=== PATIENT | male | born 1980 | race Caucasian/White ===

== ENCOUNTER 2021-06-25 23:38 | Emergency (ER) | payer MEDICAID ==
[~2021-06-25] VITALS: Ht 175.3 cm; Wt 77.1 kg
[2021-06-26 00:11] VITALS: BP 140/97
== END 2021-06-26 01:29 ==
LOC: ER 23:38
DX: F11.20 Opioid dependence, uncomplicated (principal); F17.210 Nicotine dependence, cigarettes, uncomplicated

== ENCOUNTER 2022-06-20 11:28 | Emergency (ER) | payer SELFPAY ==
[~2022-06-20] VITALS: Ht 172.7 cm; Wt 91.0 kg
[2022-06-20] MEDS ORDERED: SODIUM CHLORIDE 0.9% 1,000 ML IV ONE (11:30)
[2022-06-20 12:30] LABS: Basophils # (auto) 0 10 ^3/uL (0-0.2); Basophils % (auto) 0.1 % (0.0-2.0); Eosinophils # (auto) 0 10 ^3/uL (0-0.8); Eosinophils % (auto) 0.3 % (0.0-7.0); Hematocrit 40.9 % (41.0-53.0); Hemoglobin 13.5 g/dL (13.5-17.5); Lymphocytes % (auto) 8.6 % (10.0-50.0); Mean Corpuscular Hemoglobin 27.4 pg (28.0-32.0); Mean Corpuscular Hgb Conc. 32.9 g/dL (32.0-36.0); Mean Corpuscular Volume 83.4 fL (80.0-100.0); Monocytes # (auto) 0.6 10 ^3/uL (0-1.3); Monocytes % (auto) 5.1 % (0.0-12.0); Neutrophils # (auto) 9.7 10 ^3/uL (1.6-8.6); Neutrophils % (auto) 85.9 % (37.0-80.0); Red Blood Cells 4.91 10^6/uL (4.5-5.90); Red Cell Distribution Width 13.4 % (11.8-14.3); White Blood Cell 11.3 10^3/uL (4.4-10.8)
[2022-06-20 12:44] LABS: Albumin 3.6 g/dL (3.4-5.0); Potassium 3.5 mmol/L (3.5-5.1)
[2022-06-20 12:46] LABS: BUN/Creatinine Ratio 10.1 (10.0-20.0)
[2022-06-20 12:48] LABS: Bilirubin, Total 0.5 mg/dL (0.2-1.0); Total Protein 7.4 g/dL (6.4-8.2)
[2022-06-20 14:00] VITALS: BP 117/71
== END 2022-06-20 15:02 | disposition home or self-care (01) ==
LOC: ER 11:28 → EDBD 11:28 → ER 15:02
DX: F11.10 Opioid abuse, uncomplicated (principal); F10.90 Alcohol use, unspecified, uncomplicated; F12.90 Cannabis use, unspecified, uncomplicated; F15.90 Other stimulant use, unspecified, uncomplicated; Z90.49 Acquired absence of other specified parts of digestive tract; Z88.6 Allergy status to analgesic agent
CPT/HCPCS: 36415; 71045; 80053; 85025; 96360; 99284; J7030

== ENCOUNTER 2024-07-03 22:51 | Emergency (ER) | payer MEDICAID ==
[~2024-07-03] VITALS: Ht 175.3 cm; Wt 86.9 kg
[2024-07-03 23:50] VITALS: BP 103/71; PULSE 102; RESP 18; TEMP 99.6; O2SAT 99
[2024-07-04] MEDS: cefTRIAXone SOD 1,000 MG VL IM ONE (00:15)
--- NOTE | 2024-07-04 00:18 | ED.PDOC ---
General HPI Comments PT CAME TO THE ER WITH CC OF FLU LIKE SYMPTOMS X1 WK WITH "SLIMY" PENILE DISCHARGE PER PT. PT REPORTS RECENT SEXUAL ACTIVITY X2 WEEKS AGO. PT IS A&OX4 RR EVEN AND REGULAR , NO DISTRESS NOTED AT THIS TIME, PT DENIES PAIN OR BURNING WITH URINATIO Chief Complaint: Penile Discharge Time Seen by MD: 23:36 Primary Care Provider: NURA Reviewed notes: Nurses Notes, Medications, Allergies Allergies: Coded Allergies: Ibuprofen (Verified Allergy, 08/03/10) Information Source: Patient Mode of Arrival: Ambulatory Past Medical History PAST MEDICAL HISTORY: Denies Surgical History: Cholecystectomy Family History Family History: Reviewed,noncontributory to illness Social History Smoker: Cigarettes, Greater Than 1 Pack/Day Alcohol: Heavy Drugs: Marijuana, Methamphetamine, Other Lives In: Home Constitutional: denies: chills, diaphoresis, fatigue, fever, malaise, sweats, weakness, others EENTM: denies: blurred vision, double vision, ear bleeding, ear discharge, ear drainage, ear pain, ear ringing, eye pain, eye redness, hearing loss, mouth pain, mouth swelling, nasal discharge, nose bleeding, nose congestion, nose pain, photophobia, tearing, throat pain, throat swelling, voice changes, others Respiratory: denies: cough, hemoptysis, orthopnea, SOB at rest, shortness of breath, SOB with excertion, stridor, wheezing, others Cardiovascular: denies: chest pain, dizzy spells, diaphoresis, Dyspnea on exertion, edema, irregular heart beat, left arm pain, lightheadedness, palpitations, PND, syncope, others Gastrointestinal: denies: abdomen distended, abdominal pain, blood streaked bowels, constipated, diarrhea, dysphagia, difficulty swallowing, hematemesis, melena, nausea, poor appetite, poor fluid intake, rectal bleeding, rectal pain, vomiting, others Genitourinary: reports: penile discharge; denies: burning, dysuria, flank pain, frequency, hematuria, incontinence, penile sore, pain, testicle pain, testicle swelling, urgency, others Neurological: denies: dizziness, fainting, headache, left sided numbness, left sided weakness, numbness, paresthesia, pre-existing deficit, right sided numb ness, right sided weakness, seizure, speech problems, tingling, tremors, weakness, others Musculoskeletal: denies: back pain, gout, joint pain, joint swelling, muscle pain, muscle stiffness, neck pain, others Integumetry: denies: bruises, change in color, change in hair/nails, dryness, laceration, lesions, lumps, rash, wounds, others Allergic/Immunocompromised: denies: Difficulty Healing, Frequent Infections, Hives, Itching, others Hematologic/Lymphatic: denies: anemia, blood clots, easy bleeding, easy bruising, swollen glands, others Endocrine: denies: excessive hunger, excessive sweating, excessive thirst, excessive urination, flushing, intolerance to cold, intolerance to heat, unexplained weight gain, unexplained weight loss, others Psychiatric: denies: anxiety, bipolar disorder, depression, hopeless, panic disorder, schizophrenia, sleepless, suicidal, others Physical Exam General Appearance: No Apparent Distress, Normal HEENT: Normal ENT Inspection, Pharynx Normal, TMs Normal Neck: Full Range of Motion, Non-Tender Respiratory: Lungs Clear, No Respiratory Distress, Normal Breath Sounds Cardiovascular: No Edema, No JVD, No Murmur, No Gallop, Normal Peripheral Pulses, Regular Rate/Rhythm Breast Exam: Deferred Gastrointestinal: No Organomegaly, Non Tender, No Pulsatile Mass, Normal Bowel Sounds, Soft Genitalia: Deferred Pelvic: None Rectal: Deferred Extremities: Normal capillary refill, Normal inspection, Normal range of motion, Non-tender, No pedal edema Musculoskeletal : Apperance: Normal Neurologic: Alert, financial services consultant II-XII nml as Tested, No Motor Deficits, Normal Affect, Normal Mood, No Sensory Deficits Cerebellar Function: Normal Reflexes: Normal Skin: Dry, Normal Color, Warm Lymphatic: No Adenopathy Was a procedure done? Was a procedure done?: No Differential Diagnosis Kidney stone (Female): N/A Kidney stone (Male): N/A Penile/Scrotal: STD, UTI X-Ray, Labs, Meds, VS Vital Signs Date Time Temp Pulse Resp B/P (MAP) Pulse Ox O2 Delivery O2 Flow Rate FiO2 07/03/24 23:50 99.6 18 103/71 (82) 99 99.6 Time of 1ST Reevaluation: 23:20 Reevaluation 1ST: Unchanged Time of 2ND Reevaluation: 00:15 Reevaluation 2ND: Improved Patient Education/Counseling: Diagnosis, Treatment, Prognosis, Need For Follow Up Family Education/Counseling: No Family Present Departure 1 Departure Time of Disposition: 00:16 Impression: Primary Impression: Possible exposure to STD Disposition: 01 HOME / SELF CARE / HOMELESS Condition: Stable Additional Instructions: [facility] HIV/HEP B,C if any concerns as discussed Discharged With: Self Critical Care Note Critical Care Time?: No Stability Stability form required: DARIEN Aceves July 04, 2024 00:18
[2024-07-04] MEDS: AZITHROMYCIN 250 MG TAB PO ONE (01:18)
== END 2024-07-04 01:36 | disposition home or self-care (01) ==
LOC: ER 22:51
DX: R36.9 Urethral discharge, unspecified (principal); R68.89 Other general symptoms and signs; F17.210 Nicotine dependence, cigarettes, uncomplicated; F10.90 Alcohol use, unspecified, uncomplicated; F15.90 Other stimulant use, unspecified, uncomplicated; Z90.49 Acquired absence of other specified parts of digestive tract; Z88.6 Allergy status to analgesic agent; Y90.0 Blood alcohol level of less than 20 mg/100 ml
CPT/HCPCS: 96372; 99283; J0696